=== PATIENT | male | born 1965 | race Two or more races ===

== ENCOUNTER → 2024-05-14 | Outpatient (CLI) | payer MEDICAID, SELFPAY ==
--- NOTE | 2024-05-14 11:21 | XR_ITS ---
Examination: Knee, left , 3 views Technique: Knee AP, lateral, oblique 3 views Date and time of exam: May 14, 2024 1149 hours INDICATIONS: Left knee pain beginning 3 months ago FINDINGS: Orthopedic screws traverse the distal femur Moderate to advanced tricompartment osteoarthritis, most severe medial joint space, irregularity of the medial femoral condyle Small knee effusion IMPRESSION: Moderate to advanced tricompartment osteoarthritis, most severe medial joint space
== END | disposition home or self-care (01) ==
PROVIDERS: PCP Specialist; Referring Provider Specialist; Visit Provider Specialist
DX: M17.12 Unilateral primary osteoarthritis, left knee (principal)
CPT/HCPCS: 73564